=== PATIENT | female | born 1955 | race African-American/Black ===

== ENCOUNTER → 2020-03-11 | Outpatient (CLI) | payer OTHER ==
[~2020-03-11] VITALS: Ht 160 cm; Wt 56.9 kg
[~2020-03-11] MED LIST: CALCIUM500 MG PO; COZAAR100 MG PO; FLEXERIL PO; IBUPROFEN 800800 M1 PO
--- NOTE | ~2020-03-11 | HPC ---
[facility] [address]ain [place] [employer] [address] PAIN MANAGEMENT CONSULTATION Name: JACOB REYES Room #: REG [facility].#: [id number] Admission: 03/11/20 Attend Phys: Angel Suazo MD Discharge: Date of : 51 Report #: [id number] THIS REPORT FOR: cc: Giancarlo Mcdermott MD, Steven A. MD Morgan, Richard L. MD ~ CC: Gil Mcdermott DATE OF SERVICE: 03/11/2020 CHIEF COMPLAINT: Low back pain, chronic with radiation into the hips, bilateral, left worse than right. 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 It only occasionally radiates farther. It is a constant pain, gnawing, burning and shooting. It is severe when she sits or sometimes it can just happen when she is standing. She frequently changes position. She has used heat, ice, stretching and occasionally some pain medications, but not regular. She has had couple of piriformis injections including a Botox injection. Nothing has provided lasting relief. An MRI was scheduled and she presents today with the consideration of spinal stenosis and radiculopathy. I did review the MRI with her. It shows disk space narrowing and degenerative changes with spinal stenosis of 6-7 mm at L3-L4. There is also diffuse annular bulging and triangulation of the thecal sac with foraminal stenosis. Similar findings are found at L4-L5, not quite so bad the stenosis is about 7-8 mm. The rest of the spine also shows some degenerative changes as well and facet arthropathy at nearly every level. MEDICATIONS: Losartan, calcium, ibuprofen 800 mg p.r.n., Flexeril 5 mg p.r.n. ALLERGIES: None. PAST MEDICAL HISTORY: Positive for hypertension. PAST SURGICAL HISTORY: Hysterectomy in 1998. 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 She denies use of tobacco, drinks alcohol in social setting 2-3 times a day. PHYSICAL EXAMINATION: [facility] [address] [place] [address] PAIN MANAGEMENT CONSULTATION Name: JACOB REYES Room #: REG [facility]#: [id number] Admission: 03/11/20 Attend Phys: Angel Suazo MD Discharge: Date of : 51 Report #: [id number] GENERAL: Very pleasant, fit appearing 64-year-old. She walks on a daily basis. She moves quickly and independently from sitting to standing position, ambulates without difficulty. VITAL SIGNS: She is 5 feet 3 inches, 125 pounds, BMI 22.4, blood pressure 133/67, heart rate 74, respirations 16, and O2 sat 100. CHEST: Clear. CARDIAC: Rhythm is regular. MUSCULOSKELETAL: Examination of the spine reveals good range of motion. Tenderness across the lumbosacral segment. Straight leg raising is negative. Deep tendon reflexes are trace at the knees and ankles. Good strength is noted in both the lower extremities. IMPRESSION: Low back pain with spinal stenosis. Her pain could certainly represent a radicular distribution pain and would consider an epidural steroid injection. Described the procedure including risks and benefits and long-term outcomes that we have seen in some patients who have successfully been treated. I focused primarily on those success outcomes which for many patients can provide months of pain relief with a single 15-minute injection. There are some risks, but they are fairly low. We reviewed those today. Multiple questions were asked and answered. We did talk about chiropractic. I gave her a card to see Milady Castaneda and she will consider a consultation there. Followup visit is scheduled for possible epidural injection at her discretion. This is an elective procedure and may be done. We discussed medications briefly, but she will stick with her current regimen. I do not feel that she needs opioids and would not recommend them unless all other options have failed. By: [id number] Angel Suazo MD /nt
[2020-03-11 14:28] VITALS: BP 133/66
--- NOTE | 2020-03-11 14:41 | NUR ---
Pain Clinic Assessment: 1. History of Osteoarthritis: NECK BACK History of Rheumatoid Arthritis: Not Applicable 2. Height: 5 ft. 3 in. 160.0 cm. Weight: 125.4 lb. oz. 56.881 kg. Patient's BMI: 22.2 3. Vital Signs: BP: 133/66 Pulse: 74 Resp: 16 Temp: 02 Sat: 100 ECG Mon: 4. Pain Intensity: 5-6 5. Fall Risk: Dizziness: N Needs help standing or walking: N Fallen in the last 3 months: N Fall risk comments: 6. Patient on Blood Thinner: None 7. History of Hypertension: Y 8. Opioid Therapy greater than 6 weeks: N Opiate Contract Signed: 9. Risk Assessment Tool Provided: LOW RISK 0/3 10. Functional Assessment Tool: 11. Recreational Drug Use: Never Drug Type: Tobacco Use: Never Smoker Tobacco Type: Amount or Packs/day: How Many Years: Alcohol Use: Yes Frequency: Weekly Quant: 2-3
== END ==
LOC: PAIN 07:04
PROVIDERS: ATTEND Anesthesiology Pain Medicine
DX: M48.061 Spinal stenosis, lumbar region without neurogenic claudication (principal); I10 Essential (primary) hypertension; Z79.52 Long term (current) use of systemic steroids; Z90.710 Acquired absence of both cervix and uterus; Z79.899 Other long term (current) drug therapy

== ENCOUNTER → 2020-04-01 | Outpatient (CLI) | payer OTHER ==
[~2020-04-01] VITALS: Ht 160 cm; Wt 57.7 kg
--- NOTE | ~2020-04-01 | HPC ---
[facility] [place] [address] PAIN MANAGEMENT CONSULTATION Name: JACOB REYES [id number] Admission: 04/01/20 Attend Phys: Angel Suazo MD Discharge: Date of : 51 Report #: [id number] THIS REPORT FOR: cc: Giancarlo Mcdermott MD,Giancarlo Suazo,Angel Sutton MD ~ CC: Angel Mcdermott DATE OF SERVICE: 04/01/2020 Followup visit for spinal stenosis with radiculopathy. The patient returns to pain clinic today for an epidural injection. She was seen in consultation for the injection on 03/11/2020 and has returned with preauthorization to go forward. She has spinal stenosis and we reviewed her MRI findings and the injection was discussed in great detail including potential risks and benefits. She asked about other options if this is not helpful given the fact that she has failed an epidural in the past. We talked about exercise, medication management, spinal cord stimulation and even surgery. None of those options other than the exercise part are of interest to her! and she is willing to do regular exercises, but the pain is limiting her ability to walk some. We hope that we can see some improvement in her stamina with weightbearing. She has remained otherwise pretty healthy and has kept her weight down and has a BMI of 22, appears fit. PHYSICAL EXAMINATION: Unchanged from prior visit. She continues to have pain across her lumbar spine and her straight leg raising is negative. Pain, however, when it occurs, radiates radicular through the hips bilaterally, left worse than right. IMPRESSION: Lumbar radiculopathy secondary to spinal stenosis. PROCEDURE: Lumbar epidural injection, L4-L5 under fluoroscopic guidance. She was taken to fluoroscopic suite, placed prone, skin prepped with ChloraPrep. Skin anesthetized over the L4-L5 interspace. A 20-gauge Tuohy epidural needle advanced in first attempt in the epidural space with loss of resistance technique. There was no blood nor CSF aspirated. A 1 mL of Omnipaque was injected. Excellent spread of dye observed in the epidural space, was followed by 3 mL of 0.5% lidocaine mixed with 80 mg of triamcinolone. She tolerated the [address] [address] PAIN MANAGEMENT CONSULTATION Name: JACOB REYES Room #: REG [facility]#: [id number] Admission: 04/01/20 Attend Phys: Angel Suazo MD Discharge: Date of : 51 Report #: [id number] procedure well without complication. She was taken to recovery room for observation and we will see her back in 1-2 months. By: [id number] Angel Suazo MD /sharlene
[2020-04-01 14:26] VITALS: BP 139/74
--- NOTE | 2020-04-01 14:40 | NUR ---
Pain Clinic Assessment: 1. History of Osteoarthritis: NECK BACK History of Rheumatoid Arthritis: Not Applicable 2. Height: 5 ft. 3 in. 160.0 cm. Weight: 127.2 lb. oz. 57.697 kg. Patient's BMI: 22.5 3. Vital Signs: BP: 139/74 Pulse: 72 Resp: 16 Temp: 02 Sat: 100 ECG Mon: 4. Pain Intensity: 3 5. Fall Risk: Dizziness: N Needs help standing or walking: N Fallen in the last 3 months: N Fall risk comments: 6. Patient on Blood Thinner: None 7. History of Hypertension: Y 8. Opioid Therapy greater than 6 weeks: N Opiate Contract Signed: 9. Risk Assessment Tool Provided: LOW RISK 0/3 10. Functional Assessment Tool: 11. Recreational Drug Use: Never Drug Type: Tobacco Use: Never Smoker Tobacco Type: Amount or Packs/day: How Many Years: Alcohol Use: Yes Frequency: Quant:
== END ==
LOC: PAIN 07:01
PROVIDERS: ATTEND Anesthesiology Pain Medicine
DX: M54.16 Radiculopathy, lumbar region (principal); M48.061 Spinal stenosis, lumbar region without neurogenic claudication; Z79.899 Other long term (current) drug therapy; Z72.89 Other problems related to lifestyle

== ENCOUNTER → 2020-04-29 | Outpatient (CLI) | payer OTHER ==
[~2020-04-29] VITALS: Ht 160 cm; Wt 57.6 kg
[~2020-04-29] MED LIST changes: +CYMBALTA30 MG PO
--- NOTE | ~2020-04-29 | HPC ---
[facility] [address] [place] [address] PAIN MANAGEMENT CONSULTATION Name: JACOB REYES Room #: REG [facility].#: [id number] Admission: 04/29/20 Attend Phys: Angel Suazo MD Discharge: Date of : 51 Report #: [id number] CC: BRIDGET Mcdermott MD DATE OF SERVICE: 04/29/2020 The patient returns to pain clinic today for about a 30-40 minute consultation. We had a long discussion today about chronic pain and it impacts. 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 She has pain, however, throughout the day in her neck and pain at times, radiating into her arms. It varies as a burning, aching, gnawing sensation, exacerbated by reaching and lifting overhead reaching, which she obviously has to do at her job. Rotational movements also cause pain. She has had series of injections performed at [facility] with limited improvement. She is discouraged by her failure to respond to injection therapy. She did receive treatment for her low back in our clinic at a previous visit and has responded nicely to that. It is the neck now that is bothering her primarily. We discussed underlying causes of cervical pain and I reviewed her cervical MRI. She has some moderate spinal stenosis related to bulging of the disks at C2-C3, C3-C4 and C4-C5. There is some modest encroachment upon the neural foramina bilaterally. There is also facet arthropathy noted as well. PHYSICAL EXAMINATION: GENERAL AND VITAL SIGNS: She is 5 feet 3 inches, BMI 22. Bright and alert. Blood pressure 136/72, heart rate 74, respirations 14, O2 sat 100. HEENT: Normal. NECK: Reveals tenderness in the occiput pain with rotational movements, flexion and extension. Good strength in the upper extremities. She denies numbness, tingling or weakness consistent with radiculopathy. She has tenderness along the trapezius and at the base of the neck. CHEST: Clear. CARDIAC: Rhythm is regular. MUSCULOSKELETAL: Her gait is improved following her epidural injection in the low back. IMPRESSION: 1. Low back pain with radiculopathy, improved. 1. Cervicalgia with radiation into the occiput, occasional arm pain consistent with radiculopathy. RECOMMENDATIONS: I had a long discussion today about medicines. She is currently on Flexeril, ibuprofen, calcium, and Cozaar. I suggested the addition of Cymbalta beginning at 30 mg once daily. She can take it in the morning and then continue with her cyclobenzaprine if necessary at night. I told her it would take 30 days. We discussed other options including the possibility of gabapentin or Lyrica. I will try to avoid polypharmacy and find medications that have a direct defect. General exercises and range of motions were reviewed as well. Multiple questions were asked and answered. Followup visit planned in 1-2 months. By: 1653 24 Angel Suazo MD /nt
[2020-04-29 12:49] VITALS: BP 136/72
--- NOTE | 2020-04-29 13:09 | NUR ---
Pain Clinic Assessment: 1. History of Osteoarthritis: NECK BACK History of Rheumatoid Arthritis: Not Applicable 2. Height: 5 ft. 3 in. 160.0 cm. Weight: 127.0 lb. oz. 57.607 kg. Patient's BMI: 22.5 3. Vital Signs: BP: 136/72 Pulse: 74 Resp: 14 Temp: 02 Sat: 100 ECG Mon: 4. Pain Intensity: 4; 7-8 AT WORST 5. Fall Risk: Dizziness: N Needs help standing or walking: N Fallen in the last 3 months: N Fall risk comments: 6. Patient on Blood Thinner: None 7. History of Hypertension: Y 8. Opioid Therapy greater than 6 weeks: N Opiate Contract Signed: 9. Risk Assessment Tool Provided: LOW RISK 0/3 10. Functional Assessment Tool: 11. Recreational Drug Use: Never Drug Type: Tobacco Use: Never Smoker Tobacco Type: Amount or Packs/day: How Many Years: Alcohol Use: Yes Frequency: Monthly Quant: SOCIALLY
== END ==
LOC: PAIN 06:52
PROVIDERS: ATTEND Anesthesiology Pain Medicine
DX: M54.16 Radiculopathy, lumbar region (principal)

== ENCOUNTER → 2020-08-01 | Outpatient (CLI) | payer OTHER ==
[~2020-08-01] VITALS: Ht 162.6 cm; Wt 58.7 kg
[~2020-08-01] MED LIST changes: +CELEBREX 200 M200 MG PO; +NORVASC 2.5 MG2.5 M1 PO
[2020-08-01 14:37] VITALS: BP 115/69
--- NOTE | 2020-08-01 15:07 | NUR ---
Pain Clinic Assessment: 1. History of Osteoarthritis: NECK BACK History of Rheumatoid Arthritis: Not Applicable 2. Height: 5 ft. 4 in. 162.6 cm. Weight: 129.4 lb. oz. 58.695 kg. Patient's BMI: 22.2 3. Vital Signs: BP: 115/69 Pulse: 89 Resp: 14 Temp: 02 Sat: 100 ECG Mon: 4. Pain Intensity: 3-4 BACK 8 AT TIMES 5. Fall Risk: Dizziness: N Needs help standing or walking: N Fallen in the last 3 months: N Fall risk comments: 6. Patient on Blood Thinner: None 7. History of Hypertension: Y 8. Opioid Therapy greater than 6 weeks: N Opiate Contract Signed: 9. Risk Assessment Tool Provided: LOW RISK 0/3 10. Functional Assessment Tool: 11. Recreational Drug Use: Never Drug Type: Tobacco Use: Never Smoker Tobacco Type: Amount or Packs/day: How Many Years: Alcohol Use: Yes Frequency: Special Occasions Quant:
== END ==
LOC: PAIN 06:58
PROVIDERS: ATTEND Anesthesiology Pain Medicine
DX: M47.26 Other spondylosis with radiculopathy, lumbar region (principal); M47.22 Other spondylosis with radiculopathy, cervical region; Z88.8 Allergy status to other drugs, medicaments and biological substances; Z79.899 Other long term (current) drug therapy